=== PATIENT | male | born 1960 | race Caucasian/White ===

== ENCOUNTER → 2020-05-15 10:18 | Outpatient (BNVA) | payer BC, SELFPAY | PROVIDERS: Visit Provider Dermatology | DX: L57.0 Actinic keratosis (principal); D18.01 Hemangioma of skin and subcutaneous tissue; L82.1 Other seborrheic keratosis; B07.8 Other viral warts; Z12.83 Encounter for screening for malignant neoplasm of skin | CPT/HCPCS: 17000; 17003; 99203 ==

== ENCOUNTER 2020-10-24 12:39 | Outpatient (CLI) | payer BC, SELFPAY ==
[2020-10-24 12:53] VITALS: BP 138/101; PULSE 103; RESP 16; TEMP 36.3; O2SAT 96; BMI 22.6
--- NOTE | 2020-10-24 13:02 | AMB.MCA ---
Patient Information Referred by: Tamera Symptom onset date: 10/14/20 COVID 19 common symptoms: positive fever(s), chills, cough, non-productive cough, dyspnea, fatigue, body aches and headache(s) COVID 19 other sytmptoms: negative chest pressure, chest pain, pleuritic pain, requiring oxygen, requiring more oxygen or respiratory distress Severity: moderate Treatment prior to arrival: none [facility] COVID test results: No Data to Display Criteria/Plan Inclusion/Exclusion Criteria weight >/= 40kg, + direct test </= 10 days ago and symptom onset </= 10 days ago has chronic kidney disease and age >/= 55 and has hypertension not requiring hospitalization, not requiring oxygen (if not chronically on oxygen) and no increase oxygen requirement (if chronically on oxygen) Patient education patient/caregiver received/reviewed fact sheet, Emergency Use Authorization/unapproved drug status discussed with patient/caregiver, alternatives to this treatment discussed with patient/caregiver, risks and benefits of medication reviewed with patient/caregiver, patient/caregiver given opportunity for questions, which were answered and patient/caregiver consents to receiving Monoclonal Antibody Treatment Plan for treatment Meets criteria for Monoclonal Antibody infusion
[2020-10-24 14:10] VITALS: BP 147/101; PULSE 86; RESP 15; TEMP 36.4; O2SAT 95
[2020-10-24 14:25] VITALS: BP 140/92; PULSE 81; RESP 14; TEMP 36.3; O2SAT 95
[2020-10-24 15:48] VITALS: BP 143/94; PULSE 79; RESP 17; TEMP 36.3; O2SAT 96
[2020-10-24 15:50] VITALS: BP 143/94; PULSE 79; RESP 15; TEMP 36.3; O2SAT 96
--- NOTE | 2020-10-30 15:08 | DCPLANNER ---
Addendum entered by Bharati Marks 11/06/20 14:44: Spoke with patients , she stated that patient is doing good, and has not been admitted to hospital. Addendum entered by Bharati Marks 11/01/20 15:44: no answer - unable to leave voicemail for patient. Original Note: retail pharmacy manager had message that patient received the BAM infusion. retail pharmacy manager called patient to check on patient after receiving the infusion. retail pharmacy manager called phone number [phone] there was no answer and shelter case manager was unable to leave a voicemail.
== END 2020-10-24 15:50 | disposition home or self-care (01) ==
PROVIDERS: Referring Provider Nurse Practitioner Family; Visit Provider Family Medicine
DX: U07.1 COVID-19 (principal)
CPT/HCPCS: J7050

== ENCOUNTER 2020-11-22 12:38 | Outpatient (CLI) | payer BC, SELFPAY ==
--- NOTE | 2020-11-22 12:52 | CT_ITS ---
WS: [id number] CT ABDOMEN WITHOUT CONTRAST HISTORY: MEASURE KIDNEY SIZE Contiguous single phase 5 mm axial imaging performed through the abdomen. Oral contrast has not been provided. Coronal and sagittal reformats are submitted. All CT scans at [facility] use at least one of these dose optimization techniques: automated exposure control; mA and/or kV adjustment per patient size (includes targeted exams where dose is matched to clinical indication); or iterativ e reconstruction. CONTRAST: None DLP: 819.83 mGycm COMPARISON: Renal ultrasound 08/02/2007 Lower thorax: Unremarkable. Liver: Normal size liver. There are numerous low-attenuation masses throughout the liver consistent w ith polycystic liver disease. Largest cluster cyst measures approximately 3.6 x 3.5 cm. There is invo lvement of both the RIGHT and LEFT lobes and the caudate lobe. RIGHT lobe of liver is being anteriorl y displaced by enlarged polycystic RIGHT kidney. No bile duct dilatation. Gallbladder: Normal. Pancreas: Normal. Spleen: Spleen is being elevated into the high LEFT upper quadrant from the enlarged polycystic kidne y. Adrenals: Neither adrenal gland is definitely visualized. Right kidney: Markedly enlarged RIGHT kidney extending over length of 22.5 cm. There are multiple inn umerable and confluent cystic masses throughout the entire kidney. Anterior posterior diameter is 15. 4 cm. There are a few calcifications which are probably in the talavera of the cysts. Majority of the cy sts or low-attenuation. Some of the cysts have areas of increased attenuation. No obstruction. Left kidney: Markedly enlarged LEFT kidney extends over a length of 23.7 cm. Maximum AP diameter 14.0 cm. Very little normal renal parenchyma. No obstruction. Majority of the cysts or low-attenuation so me of the cysts have increased attenuation which are probably related to hemorrhage. Obviously, neopl asm would be difficult to exclude. Aorta: Normal. GI tract: As visualized no abnormality. No adenopathy or free fluid. Abdominal wall: Fat-containing umbilical hernia. Visualized osseous structures: Increased sclerotic change within the L2 vertebral body. The cortex is intact and this is probably a hemangioma. There is mild LEFT convex curvature of the lumbar spine. CT/CT abdomen wo con [id number] IMPRESSION: 1. Polycystic renal and liver disease. 2. RIGHT kidney measures 22.5 cm in length by 15.4 cm anterior posterior. 3. LEFT kidney measures 23.7 cm in length by 14.0 cm anterior posterior. 4. Visceral organs within the abdominal cavity are being displaced by the jennifer edly enlarged kidneys.
== END 2020-11-22 12:39 | disposition home or self-care (01) ==
LOC: RADWPI 12:41
PROVIDERS: PCP Family Medicine; Visit Provider Internal Medicine Nephrology
DX: N18.32 Chronic kidney disease, stage 3b (principal); Q61.3 Polycystic kidney, unspecified; Q44.6 Cystic disease of liver; N28.81 Hypertrophy of kidney
CPT/HCPCS: 74150

== ENCOUNTER → 2021-12-11 08:02 | Outpatient (BNVA) | payer BC, SELFPAY | PROVIDERS: PCP Family Medicine; Visit Provider Podiatrist Foot & Ankle Surgery | DX: M79.672 Pain in left foot (principal) | CPT/HCPCS: 73630 ==

== ENCOUNTER 2022-02-11 10:57 | Outpatient (CLI) | payer BC, SELFPAY | END 2022-02-11 10:58 | disposition home or self-care (01) | LOC: SPT 10:57 | PROVIDERS: PCP Family Medicine; Visit Provider Podiatrist Foot & Ankle Surgery | DX: Z46.89 Encounter for fitting and adjustment of other specified devices (principal); M92.60 Juvenile osteochondrosis of tarsus, unspecified ankle; M21.40 Flat foot [pes planus] (acquired), unspecified foot; M76.60 Achilles tendinitis, unspecified leg | CPT/HCPCS: 97760; L3030 ==

== ENCOUNTER → 2022-03-07 09:29 | Outpatient (BNVA) | payer BC, SELFPAY | PROVIDERS: PCP Family Medicine; Visit Provider Internal Medicine Nephrology | DX: N18.32 Chronic kidney disease, stage 3b (principal) | CPT/HCPCS: 80069; 82043; 82310; 83970; 85025 ==

== ENCOUNTER 2023-05-15 09:03 | Outpatient (CLI) | payer BC, SELFPAY ==
--- NOTE | 2023-05-15 09:17 | US_ITS ---
WS: [id number] RENAL ULTRASOUND HISTORY: STAGE 3B CHRONIC KIDNEY DZ/ADULT POLYCYSTIC KIDNEY COMPARISON: 08/02/2007, CT 11/22/2020 TECHNIQUE: 2-D and color Doppler imaging of the kidney submitted. Right kidney: 19.4 cm x 10.7 cm x 10.0 cm. Cortex: 1.8 cm Markedly enlarged kidney. Parenchyma is difficult to see in its entirety. Innumerable cysts replacing normal renal parenchyma. Largest cyst measures 12 x 6 x 9 mm. No solid mass identified. Left kidney: 19.2 cm x 8.4 cm x 8.0 cm. Cortex: 1.7 cm Markedly enlarged kidney. Innumerable cysts throughout the kidney. The largest measures 6 x 4 x 7 mm. No solid mass. Aorta: Not visualized. Urinary Bladder: Nondistended. Prostate is mildly heterogeneous and enlarged measuring 6.3 x 4.2 x 5. 7 cm. US/US renal BI* [id number] IMPRESSION: 1. Polycystic kidney disease as described above. Similar to the prior CT of . 2. No solid mass identified. 3. Mildly enlarged heterogeneous prostate gland.
== END 2023-05-15 09:04 | disposition home or self-care (01) ==
LOC: RAD 09:05
PROVIDERS: PCP Family Medicine; Visit Provider Internal Medicine Nephrology
DX: I12.9 Hypertensive chronic kidney disease with stage 1 through stage 4 chronic kidney disease, or unspecified chronic kidney disease (principal); N18.32 Chronic kidney disease, stage 3b; Q61.2 Polycystic kidney, adult type; Z87.891 Personal history of nicotine dependence
CPT/HCPCS: 76770

== ENCOUNTER → 2024-07-12 12:34 | Outpatient (BNVA) | payer BC, SELFPAY | PROVIDERS: PCP Family Medicine; Visit Provider Family Medicine | DX: Z00.00 Encounter for general adult medical examination without abnormal findings (principal); I10 Essential (primary) hypertension; Q61.3 Polycystic kidney, unspecified | CPT/HCPCS: 80053; 80061 ==

== ENCOUNTER → 2024-11-10 11:12 | Outpatient (BNVA) | payer BC, SELFPAY | PROVIDERS: PCP Family Medicine; Visit Provider Family Medicine | DX: I10 Essential (primary) hypertension (principal); M10.9 Gout, unspecified; M19.90 Unspecified osteoarthritis, unspecified site; Q61.3 Polycystic kidney, unspecified | CPT/HCPCS: 84550 ==

== ENCOUNTER → 2024-12-13 09:56 | Outpatient (BNVA) | payer BC, SELFPAY | PROVIDERS: PCP Family Medicine; Visit Provider Family Medicine | DX: M19.90 Unspecified osteoarthritis, unspecified site (principal) | CPT/HCPCS: 84550 ==